=== PATIENT | male | born 1990 | race African-American/Black ===

== ENCOUNTER 2023-03-19 02:04 | Emergency (ER) | payer OTHER ==
[2023-03-19 02:13] VITALS: BP 128/79; PULSE 51; RESP 18; TEMP 97.5; BMI 26.6
== END 2023-03-19 03:54 | disposition home or self-care (01) ==
LOC: JER 02:04
DX: Z11.52 Encounter for screening for COVID-19 (principal)
CPT/HCPCS: 0241U-QW; 99283-25